=== PATIENT | female | born 1995 | race Caucasian/White ===

== ENCOUNTER 2022-01-17 12:35 | Emergency (ER) | payer OTHER ==
[~2022-01-17 12:35] MED LIST: CLARITIN-D 121 EACH PO; IBUPROFEN800 MG PO; TESSALON PERLE100 M1 PO
[2022-01-17 13:20] LABS: BILIRUBIN NEGATIVE (NEGATIVE); BLOOD NEGATIVE Ery/uL (NEGATIVE); CLARITY CLEAR (CLEAR); COLOR YELLOW (YELLOW); GLUCOSE (U) NORMAL (NORMAL); LEUKOCYTES NEGATIVE Leu/uL (NEGATIVE); NITRITE NEGATIVE (NEGATIVE); PROTEIN NEGATIVE (NEGATIVE); SPECIFIC GRAVITY <=1.005 (1.001-1.030); UROBILINOGEN 0.2 mg/dL (0.2-1.0)
[2022-01-17 13:26] LABS: SQUAMOUS EPITHELIAL CELLS RARE; URINARY RBC RARE; URINARY WBC RARE
[2022-01-17 14:23] LABS: BASOPHIL 0.3 % (0-2); HCT 40.2 % (37.0-47.0); HGB 13.2 g/dl (12.5-16.0); LYMPHOCYTE 19.9 % (15-48); MCH 29.7 pg (25.0-31.0); MCHC 32.8 g/dL (32.0-36.0); MCV 90.3 fL (78.0-100.0); MONOCYTE 6.7 % (0-12); MPV 10.8 fL (6.0-9.5); NEUTROPHIL 71.7 % (41-80); NRBC 0; PLT 214 K/uL (150-400); RBC 4.45 M/uL (4.20-5.40); RDW 12.9 % (11.5-14.0); WBC 8.9 K/uL (4.0-10.5)
[2022-01-17 14:43] LABS: ALBUMIN 4.3 g/dL (3.4-5.0); BILIRUBIN - TOTAL 0.9 mg/dL (0.2-1.0); BUN/CREAT RATIO (CALC) 7.6 RATIO; CREATININE 0.79 mg/dL (0.51-0.95); POTASSIUM 3.8 mmol/L (3.5-5.1); TOTAL PROTEIN 8.3 g/dL (6.4-8.2)
[2022-01-17] MEDS ORDERED: PRENATAL ONE D1 EACH PO (16:16)
== END 2022-01-17 16:48 | disposition home or self-care (01) ==
LOC: FER 12:35
PROVIDERS: Physician Assistant
DX: O99.891 Other specified diseases and conditions complicating pregnancy (principal); O99.331 Smoking (tobacco) complicating pregnancy, first trimester; R10.9 Unspecified abdominal pain; R42 Dizziness and giddiness; F17.210 Nicotine dependence, cigarettes, uncomplicated; Z3A.01 Less than 8 weeks gestation of pregnancy; Z28.310 Unvaccinated for COVID-19
CPT/HCPCS: 36415; 76817; 80053; 81001; 84702; 85025; 86900; 86901